=== PATIENT | female | born 1995 | race Two or more races ===

== ENCOUNTER → 2017-05-04 | Outpatient (REF) | payer OTHER | LOC: M SFHCPLAZ 15:42 | PROVIDERS: ATTEND Family Medicine | DX: Z82.3 Family history of stroke (principal) ==

== ENCOUNTER → 2018-06-06 | Outpatient (REF) | payer OTHER ==
[2018-06-06 19:16] LABS: ESTIMATED AVERAGE GLUCOSE 94 MG/DL (60-110); HEMOGLOBIN A1c 4.9 %
[2018-06-06 19:38] LABS: CHOLESTEROL LEVEL 220 MG/DL (<200); CHOLESTEROL RISK RATIO 3.333 (<5); FREE T4 1.11 NG/DL (0.76-1.46); HDL CHOLESTEROL 66 MG/DL (>40); LDL CHOLESTEROL 130 MG/DL (<100); NON-HDL-C 154 MG/DL; TRIGLYCERIDES LEVEL 121 MG/DL (<150)
== END ==
LOC: M SFHCPLAZ 16:11
DX: K59.01 Slow transit constipation (principal); Z13.1 Encounter for screening for diabetes mellitus; Z13.220 Encounter for screening for lipoid disorders

== ENCOUNTER → 2018-06-12 | Outpatient (REF) | payer OTHER | LOC: M SMT 10:22 | DX: Z12.4 Encounter for screening for malignant neoplasm of cervix (principal) ==

== ENCOUNTER → 2021-05-13 | Outpatient (CLI) | payer BC ==
[2021-05-13 09:36] LABS: BASO % 0.5 % (0.0-1.0); EOS # 0.1 10^3/uL (0.0-0.5); EOS % 1.4 % (0.0-3.0); HEMATOCRIT 42.2 % (36.0-47.0); HEMOGLOBIN 13.8 g/dl (12.0-15.5); LYMPH # 1.7 10^3/uL (1.5-5.0); LYMPH % 25.7 % (24.0-44.0); MEAN CORPUSCULAR HEMOGLOBIN 29.4 pg (27.0-33.0); MEAN CORPUSCULAR HGB CONC 32.7 g/dl (32.0-36.5); MONO # 0.3 10^3/uL (0.0-0.8); MONO % 5.2 % (2.0-8.0); NEUTROPHILS # 4.4 10^3/uL (1.5-8.5); NEUTROPHILS % 66.7 % (36.0-66.0); PLATELET COUNT, AUTOMATED 209 10^3/uL (150-450); RED BLOOD COUNT 4.69 10^6/uL (4.00-5.40); WHITE BLOOD COUNT 6.6 10^3/uL (4.0-10.0)
[2021-05-13 10:28] LABS: ALBUMIN 3.9 GM/DL (3.2-5.2); ALT/SGPT 23 U/L (12-78); BILIRUBIN,TOTAL 0.4 MG/DL (0.2-1.0); BLOOD UREA NITROGEN 10 MG/DL (7-18); CALCIUM LEVEL 8.7 MG/DL (8.5-10.1); CARBON DIOXIDE LEVEL 28 MEQ/L (21-32); CHLORIDE LEVEL 109 MEQ/L (98-107); CREATININE FOR GFR 0.86 MG/DL (0.55-1.30); GLOMERULAR FILTRATION RATE > 60.0 (>60); GLUCOSE, FASTING 91 MG/DL (70-100); POTASSIUM SERUM 4.1 MEQ/L (3.5-5.1); SODIUM LEVEL 139 MEQ/L (136-145); THYROID STIMULATING HORMONE 0.859 uIU/ML (0.358-3.740); TOTAL PROTEIN 7.4 GM/DL (6.4-8.2)
[2021-05-13 11:06] LABS: TOTAL 25(OH) VITAMIN D 37.5 NG/ML (30.0-100.0)
[2021-05-13 11:07] LABS: THYROID PEROXIDASE ANTIBODY 42.7 U/ML (<60.0)
[2021-05-14 12:07] LABS: THRYOGLOBULIN ANTIBODIES (ATA) < 1.0 IU/mL (0.0-0.9); THYROGLOBULIN QUANTITATIVE 16.6 ng/mL (1.5-38.5)
== END ==
LOC: M LAB 08:54
PROVIDERS: ATTEND Physician Assistant
DX: Z13.29 Encounter for screening for other suspected endocrine disorder (principal)

== ENCOUNTER → 2021-08-22 | Outpatient (CLI) | payer BC ==
[2021-08-22 10:52] LABS: HEMATOCRIT 36.7 % (36.0-47.0); HEMOGLOBIN 12.3 g/dl (12.0-15.5); MEAN CORPUSCULAR HEMOGLOBIN 29.6 pg (27.0-33.0); MEAN CORPUSCULAR HGB CONC 33.5 g/dl (32.0-36.5); MEAN CORPUSCULAR VOLUME 88.4 fl (80.0-96.0); PLATELET COUNT, AUTOMATED 147 10^3/uL (150-450); RED BLOOD COUNT 4.15 10^6/uL (4.00-5.40); WHITE BLOOD COUNT 8.8 10^3/uL (4.0-10.0)
[2021-08-22 12:21] LABS: GC DNA AMPLIFICATION NEGATIVE (NEGATIVE)
[2021-08-22 12:25] LABS: HEPATITIS C VIRUS ABY INDEX 0.1 INDEX (<0.8); HIV 1&2 SCREEN CENTAUR NEGATIVE (NEGATIVE)
== END ==
LOC: M PLALAB 09:14
PROVIDERS: ATTEND Obstetrics & Gynecology
DX: Z34.01 Encounter for supervision of normal first pregnancy, first trimester (principal)

== ENCOUNTER → 2021-09-06 | Outpatient (CLI) | payer BC | LOC: M PLALAB 08:18 | PROVIDERS: ATTEND Obstetrics & Gynecology | DX: O30.039 Twin pregnancy, monochorionic/diamniotic, unspecified trimester (principal); Z3A.00 Weeks of gestation of pregnancy not specified ==

== ENCOUNTER → 2021-10-26 | Outpatient (CLI) | payer OTHER | LOC: M WHC 12:49 | PROVIDERS: ATTEND Obstetrics & Gynecology | DX: O30.031 Twin pregnancy, monochorionic/diamniotic, first trimester (principal) ==

== ENCOUNTER → 2021-11-10 | Outpatient (CLI) | payer OTHER | LOC: M WHC 07:03 | PROVIDERS: ATTEND Obstetrics & Gynecology | DX: Z36.89 Encounter for other specified antenatal screening (principal) ==

== ENCOUNTER → 2021-11-23 | Outpatient (CLI) | payer OTHER | LOC: M WHC 07:01 | PROVIDERS: ATTEND Obstetrics & Gynecology | DX: O30.032 Twin pregnancy, monochorionic/diamniotic, second trimester (principal); O43.0 Placental transfusion syndromes ==

== ENCOUNTER → 2021-11-29 | Outpatient (CLI) | payer OTHER | LOC: M WHC 07:57 | PROVIDERS: ATTEND Obstetrics & Gynecology | DX: O30.032 Twin pregnancy, monochorionic/diamniotic, second trimester (principal); O43.0 Placental transfusion syndromes ==

== ENCOUNTER → 2021-12-06 | Outpatient (CLI) | payer OTHER | LOC: M WHC 06:55 | PROVIDERS: ATTEND Obstetrics & Gynecology | DX: O30.033 Twin pregnancy, monochorionic/diamniotic, third trimester (principal) ==

== ENCOUNTER → 2021-12-07 | Outpatient (CLI) | payer OTHER ==
[2021-12-07 15:17] LABS: HEMOGLOBIN 11.1 g/dl (12.0-15.5); MEAN CORPUSCULAR HEMOGLOBIN 31.5 pg (27.0-33.0); MEAN CORPUSCULAR HGB CONC 33.6 g/dl (32.0-36.5); MEAN CORPUSCULAR VOLUME 93.8 fl (80.0-96.0); PLATELET COUNT, AUTOMATED 182 10^3/uL (150-450); RED BLOOD COUNT 3.52 10^6/uL (4.00-5.40); WHITE BLOOD COUNT 12.3 10^3/uL (4.0-10.0)
[2021-12-07 17:38] LABS: GC DNA AMPLIFICATION NEGATIVE (NEGATIVE)
== END ==
LOC: M PLALAB 11:47
PROVIDERS: ATTEND Obstetrics & Gynecology
DX: Z36.89 Encounter for other specified antenatal screening (principal); Z3A.24 24 weeks gestation of pregnancy

== ENCOUNTER → 2021-12-13 | Outpatient (CLI) | payer OTHER | LOC: M WHC 06:56 | PROVIDERS: ATTEND Obstetrics & Gynecology | DX: O30.033 Twin pregnancy, monochorionic/diamniotic, third trimester (principal) ==

== ENCOUNTER → 2021-12-20 | Outpatient (CLI) | payer OTHER | LOC: M WHC 07:04 | PROVIDERS: ATTEND Obstetrics & Gynecology | DX: O30.033 Twin pregnancy, monochorionic/diamniotic, third trimester (principal) ==

== ENCOUNTER → 2021-12-27 | Outpatient (CLI) | payer OTHER | LOC: M WHC 06:54 | PROVIDERS: ATTEND Obstetrics & Gynecology | DX: O30.033 Twin pregnancy, monochorionic/diamniotic, third trimester (principal) ==

== ENCOUNTER → 2022-01-03 | Outpatient (CLI) | payer OTHER | LOC: M WHC 07:01 | PROVIDERS: ATTEND Obstetrics & Gynecology | DX: O30.002 Twin pregnancy, unspecified number of placenta and unspecified number of amniotic sacs, second trimester (principal) ==

== ENCOUNTER 2022-01-06 15:30 | Outpatient (CLI) | payer OTHER ==
[~2022-01-06] VITALS: Ht 152.4 cm; Wt 78.2 kg
[~2022-01-06 15:30] MED LIST: ACET-907 PO; COLA100C5 PO; FERR325T82 PO; FOLI1TAB11 PO; PRENTAB9 PO
[2022-01-06 15:53] VITALS: BP 104/58
[2022-01-06] MEDS ORDERED: BETAMETHASONE SOLUSPAN 6MG/ML 5ML VIAL (J0702 PER 3MG) IM ONE (16:10)
== END 2022-01-06 16:30 ==
LOC: M LDO 15:30
PROVIDERS: ATTEND Obstetrics & Gynecology
DX: O36.5931 Maternal care for other known or suspected poor fetal growth, third trimester, fetus 1 (principal); O30.043 Twin pregnancy, dichorionic/diamniotic, third trimester; Z3A.30 30 weeks gestation of pregnancy
CPT/HCPCS: 59025; 96372; G0463; J0702

== ENCOUNTER → 2022-01-10 | Outpatient (CLI) | payer OTHER | LOC: M WHC 06:59 | PROVIDERS: ATTEND Obstetrics & Gynecology | DX: O30.033 Twin pregnancy, monochorionic/diamniotic, third trimester (principal); Z3A.31 31 weeks gestation of pregnancy ==

== ENCOUNTER → 2022-01-24 | Outpatient (CLI) | payer OTHER ==
[~2022-01-24] MED LIST changes: +VALA500T5 PO
== END ==
LOC: M WHC 07:00
PROVIDERS: ATTEND Obstetrics & Gynecology
DX: O30.033 Twin pregnancy, monochorionic/diamniotic, third trimester (principal)

== ENCOUNTER → 2022-01-26 | Outpatient (CLI) | payer OTHER | LOC: M LABSMTC 09:28 | PROVIDERS: ATTEND Anesthesiology | DX: Z01.818 Encounter for other preprocedural examination (principal); Z11.52 Encounter for screening for COVID-19 ==

== ENCOUNTER 2022-01-31 05:17 | Inpatient (IN) | payer OTHER ==
[2022-01-31] VITALS (8 sets, daily range): BP systolic 98–121; BP diastolic 56–73
[~2022-01-31] VITALS: Ht 152.4 cm; Wt 79.9 kg
[2022-01-31] MEDS ORDERED: BICITRA 30ML SOLN UDC PO ONE (06:00)
[2022-01-31] MEDS ORDERED: LR 1,000 ML IV ONE ×2 (06:00→18:20)
[2022-01-31 06:17] LABS: HEMATOCRIT 38.3 % (36.0-47.0); HEMOGLOBIN 12.7 g/dl (12.0-15.5); MEAN CORPUSCULAR HGB CONC 33.2 g/dl (32.0-36.5); MEAN CORPUSCULAR VOLUME 93.4 fl (80.0-96.0); PLATELET COUNT, AUTOMATED 158 10^3/uL (150-450); WHITE BLOOD COUNT 9.8 10^3/uL (4.0-10.0)
[2022-01-31] MEDS ORDERED: LR 1,000 ML IV SCH ×2 (07:00→10:00)
[2022-01-31] MEDS ORDERED: ceFAZolin SOD 2 GM in IV 1 EA IV ONE (07:00)
[2022-01-31] MEDS ORDERED: MORPHINE PRES-FREE INJ 10 MG/10 ML VIAL As Ordered ONE (07:13)
[2022-01-31] MEDS ORDERED: PHENYLephrine 500MCG 5ML (100MCG/ML) SYRINGE As Ordered ONE (07:14)
[2022-01-31] MEDS ORDERED: OXYTOCIN 30 UNITS IN 0.9% NaCl 500ML IV BAG (J2590) As Ordered ONE ×2 (07:14→09:23)
[2022-01-31] MEDS ORDERED: ePHEDrine SULFATE 25 MG/5 ML(5MG/ML) SYRINGE As Ordered ONE ×2 (07:14→07:55)
[2022-01-31] MEDS ORDERED: diphenhydrAMINE 50MG/ML VIAL (J1200) IV PRN (07:44)
[2022-01-31] MEDS ORDERED: METOCLOPRAMIDE INJ 10MG/2ML VIAL (J2765 PER 1) IV PRN ×3 (07:44→10:00)
[2022-01-31] MEDS ORDERED: ONDANSETRON 4MG/2ML VIAL IV PRN ×3 (07:44→10:00)
[2022-01-31] MEDS ORDERED: NALOXONE INJ 0.4MG/1ML VIAL (J2310 PER 1MG) IV PRN ×2 (07:44)
[2022-01-31] MEDS ORDERED: KETOROLAC 60MG 2ML VIAL As Ordered ONE (08:17)
[2022-01-31] MEDS ORDERED: ONDANSETRON 4MG/2ML VIAL As Ordered ONE (08:17)
[2022-01-31] MEDS ORDERED: fentaNYL 100 MCG/2 ML INJECTION As Ordered ONE (08:31)
[2022-01-31] MEDS ORDERED: MEASLES,MUMPS,RUBELLA VACCINE INJ (MMR-II) (90707) SC SCH (09:10)
[2022-01-31] MEDS ORDERED: OXYTOCIN DRIP 30 UNITS in IV 1 EA IV SCH (09:10)
[2022-01-31] MEDS ORDERED: RHOGAM 300 MCG (1500 IU) INJ (J2790) IM SCH (09:10)
[2022-01-31] MEDS ORDERED: DOCUSATE SODIUM 100MG CAPSULE PO PRN (09:10)
[2022-01-31] MEDS ORDERED: oxyCODONE 5MG TAB PO PRN (09:10)
[2022-01-31 09:35] LABS: CREATININE FOR GFR 1.05 MG/DL (0.55-1.30); GLOMERULAR FILTRATION RATE > 60.0 (>60)
[2022-01-31] MEDS: LR 1,000 ML IV SCH ×2 (09:44→20:55)
[2022-01-31] MEDS ORDERED: fentaNYL 100 MCG/2 ML INJECTION IV PRN (10:00)
[2022-01-31] MEDS ORDERED: PERCOCET 5MG/325MG TAB PO PRN (10:00)
[2022-01-31] MEDS: ACETAMINOPHEN 500 MG TAB PO SCH ×2 (12:00→18:01)
[2022-01-31] MEDS: KETOROLAC 30 MG/ML 1ML VIAL IV SCH ×2 (15:26→20:58)
[2022-01-31] MEDS: ENOXAPARIN 40MG/0.4ML SYRINGE (J1650 PER 10MG) SC SCH (20:55)
[2022-02-01] MEDS: ACETAMINOPHEN 500 MG TAB PO SCH ×4 (00:13→18:00)
[2022-02-01 02:00] VITALS: BP 119/65
[2022-02-01] MEDS: KETOROLAC 30 MG/ML 1ML VIAL IV SCH (03:27)
[2022-02-01] MEDS: LR 1,000 ML IV SCH (06:00)
[2022-02-01 06:30] VITALS: BP 125/65
[2022-02-01] MEDS ORDERED: IBUP-1022 PO (06:42)
[2022-02-01] MEDS ORDERED: OXYC-517 PO (06:42)
[2022-02-01] MEDS ORDERED: ACET-683 PO (06:42)
[2022-02-01] MEDS ORDERED: COLA100C5 PO (06:42)
[2022-02-01 07:34] LABS: MEAN CORPUSCULAR HGB CONC 33.3 g/dl (32.0-36.5); MEAN CORPUSCULAR VOLUME 95.9 fl (80.0-96.0); PLATELET COUNT, AUTOMATED 121 10^3/uL (150-450); RED BLOOD COUNT 2.19 10^6/uL (4.00-5.40); WHITE BLOOD COUNT 11.3 10^3/uL (4.0-10.0)
[2022-02-01] MEDS: PRENATAL VITAMINS CHEWABLE TABLET PO SCH (09:14)
[2022-02-01 09:59] VITALS: BP 115/75
[2022-02-01] MEDS: IBUPROFEN 600MG TAB PO SCH ×2 (11:00→17:07)
[2022-02-01 14:00] VITALS: BP 140/82
[2022-02-01] MEDS: oxyCODONE 5MG TAB PO PRN ×2 (14:12→20:31)
[2022-02-01] MEDS: SIMETHICONE 80MG CHEW TAB PO PRN ×2 (15:53→20:30)
[2022-02-01 18:00] VITALS: BP 138/88
[2022-02-01] MEDS: ENOXAPARIN 40MG/0.4ML SYRINGE (J1650 PER 10MG) SC SCH (20:37)
[2022-02-01 20:52] VITALS: BP 145/97
[2022-02-02] MEDS: IBUPROFEN 600MG TAB PO SCH ×3 (00:12→11:00)
[2022-02-02] MEDS: ACETAMINOPHEN 500 MG TAB PO SCH ×3 (00:12→12:00)
[2022-02-02 02:00] VITALS: BP 137/92
[2022-02-02 06:00] VITALS: BP 130/90
[2022-02-02] MEDS: PRENATAL VITAMINS CHEWABLE TABLET PO SCH (09:00)
[2022-02-02 10:00] VITALS: BP 148/90
== END 2022-02-02 12:30 | disposition home or self-care (01) | DRG 788 ==
LOC: M LDI 05:17 → M OBS 11:59
PROVIDERS: ADMIT Obstetrics & Gynecology; ATTEND Obstetrics & Gynecology
PROC: 10D00Z1 Extraction of Products of Conception, Low, Open Approach (ICD-10-PCS; principal; 2022-01-31 07:30)
DX: O30.033 Twin pregnancy, monochorionic/diamniotic, third trimester (principal); Z3A.34 34 weeks gestation of pregnancy; Z37.2 Twins, both liveborn; O36.5931 Maternal care for other known or suspected poor fetal growth, third trimester, fetus 1

== ENCOUNTER → 2023-01-18 | Outpatient (REF) ==
[~2023-01-18] MED LIST changes: +ACET-683 PO; +IBUP-1022 PO; +OXYC-517 PO
== END ==
LOC: M EMP 08:46
PROVIDERS: ATTEND Family Medicine
DX: Z11.52 Encounter for screening for COVID-19 (principal)

== ENCOUNTER → 2024-11-18 | Outpatient (CLI) | payer OTHER ==
[2024-11-18 06:55] LABS: BASO % 0.6 % (0.0-1.0); EOS # 0.1 10^3/uL (0.0-0.5); EOS % 2.1 % (0.0-3.0); HEMATOCRIT 39.8 % (36.0-47.0); HEMOGLOBIN 13.6 g/dl (12.0-15.5); LYMPH # 1.6 10^3/uL (1.5-5.0); LYMPH % 25.9 % (24.0-44.0); MEAN CORPUSCULAR HEMOGLOBIN 30.7 pg (27.0-33.0); MEAN CORPUSCULAR HGB CONC 34.2 g/dl (32.0-36.5); MEAN CORPUSCULAR VOLUME 89.8 fl (80.0-96.0); MONO # 0.3 10^3/uL (0.0-0.8); MONO % 5.1 % (2.0-8.0); NEUTROPHILS # 4.1 10^3/uL (1.5-8.5); PLATELET COUNT, AUTOMATED 209 10^3/uL (150-450); RED BLOOD COUNT 4.43 10^6/uL (4.00-5.40); WHITE BLOOD COUNT 6.3 10^3/uL (4.0-10.0)
[2024-11-18 07:17] LABS: ALKALINE PHOSPHATASE 51 U/L (35-104); ALT/SGPT 20 U/L (7.0-40); AST/SGOT 11 U/L (<34); BILIRUBIN,TOTAL 0.7 MG/DL (0.3-1.2); BLOOD UREA NITROGEN 11 MG/DL (9-23); CALCIUM LEVEL 8.7 MG/DL (8.5-10.1); CARBON DIOXIDE LEVEL 26 MMOL/L (20-31); CHLORIDE LEVEL 109 MMOL/L (98-107); CREATININE FOR GFR 0.74 MG/DL (0.55-1.30); GLOMERULAR FILTRATION RATE > 60.0 (>60); GLUCOSE, FASTING 96 MG/DL (60-100); POTASSIUM SERUM 4.2 MMOL/L (3.5-5.1); SODIUM LEVEL 144 MMOL/L (136-145); TOTAL PROTEIN 7.1 G/DL (5.7-8.2)
[2024-11-18 07:21] LABS: FREE T4 1.26 NG/DL (0.89-1.76); THYROID STIMULATING HORMONE 1.756 uIU/ML (0.55-4.78)
[2024-11-18 07:23] LABS: THYROID PEROXIDASE ANTIBODY < 28.0 U/ML (<60.0)
[2024-11-20 07:38] LABS: THRYOGLOBULIN ANTIBODIES (ATA) < 1 IU/mL (< or = 1); THYROGLOBULIN QUANTITATIVE 16.5 ng/mL (2.8-40.9)
== END ==
LOC: M LAB 06:21
PROVIDERS: ATTEND Physician Assistant
DX: Z13.29 Encounter for screening for other suspected endocrine disorder (principal)